=== PATIENT | male | born 1980 | race Caucasian/White ===

== ENCOUNTER 2017-05-03 13:00 | Emergency (ER) | END 2017-05-03 14:10 | disposition home or self-care (01) ==

== ENCOUNTER 2017-05-15 19:31 | Emergency (ER) | END 2017-05-15 20:43 | disposition home or self-care (01) ==

== ENCOUNTER 2018-10-25 21:33 | Emergency (ER) | payer SELFPAY ==
[~2018-10-25] VITALS: Ht 180.3 cm; Wt 120.7 kg
[~2018-10-25 21:33] MED LIST: CEPH500C PO; DICY20TA59 PO; ESOM20CA PO; HYDR-3498 PO; HYDR-4011 PO; IBUP800T48 PO; METAM PO; RANI150T5 PO; SUCR1TAB56 PO; ZOF8 PO
[2018-10-25 21:54] VITALS: BP 128/85; PULSE 75; RESP 18; Ht 180.3 cm; Wt 120.7 kg
== END 2018-10-25 23:46 | disposition left against medical advice (07) ==
LOC: FTE 21:33
DX: Z53.21 Procedure and treatment not carried out due to patient leaving prior to being seen by health care provider (principal)